=== PATIENT | female | born 2000 | race African-American/Black ===

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

== ENCOUNTER → 2020-02-21 | Outpatient (CLI) | payer OTHER, MEDICAID ==
--- NOTE | 2020-02-21 18:20 | RADIOLOGY REPORT (SQ) ---
EXAM DESCRIPTION: MRA ABDOMEN WITHOUT IMAGES COMPLETED DATE/TIME: 02/21/2020 5:55 pm REASON FOR STUDY: I15.0 RENOVASCULAR HYPERTENSION I15.0 RENOVASCULAR HYPERTENSION COMPARISON: None. TECHNIQUE: Coronal and Axial imaging with T1 and T2 weighting through the kidneys. 3-D MIPs perform ed at the work station. CONTRAST TYPE AND DOSE: None RENAL FUNCTION: None required LIMITATIONS: None. FINDINGS: KIDNEYS: Kidneys are of normal size. OTHER ABDOMINAL ORGANS: No significant finding. BONY STRUCTURES: No significant finding as visualized. VASCULAR STRUCTURES: No significant finding. RIGHT RENAL ARTERY: A single renal artery. Normal without evidence for stenosis. LEFT RENAL ARTERY: A single renal artery. Normal without evidence for stenosis. AORTA, SMA, CELIAC AXIS AND ILIAC ARTERIES: No significant finding or stenosis. OTHER: No other significant finding. IMPRESSION: NORMAL RIGHT AND LEFT RENAL ARTERIES. TECHNICAL DOCUMENTATION: JOB ID: [id number] [id number] 2010 [employer]- All Rights Reserved Reading location - IP/workstation name: [email or web address]
== END ==
LOC: RAD 15:44
PROVIDERS: ATTEND Internal Medicine
DX: I15.0 Renovascular hypertension (principal)
CPT/HCPCS: 36415; 84703; C8901

== ENCOUNTER 2020-04-01 04:28 | Emergency (ER) | payer OTHER, MEDICAID ==
[2020-04-01 06:26] LABS: APPEARANCE,URINE CLOUDY; BILIRUBIN,URINE NEGATIVE (NEGATIVE); COLOR,URINE YELLOW; GLUCOSE, URINE NEGATIVE (NEGATIVE); KETONES,URINE NEGATIVE (NEGATIVE); LEUKOCYTE ESTERASE,URINE SMALL (NEGATIVE); NITRITE,URINE NEGATIVE (NEGATIVE); PROTEIN,URINE 100 mg/dL (NEGATIVE); URINE SPECIFIC GRAVITY 1.024; UROBILINOGEN,URINE NEGATIVE mg/dL (<2.0)
--- NOTE | 2020-04-01 07:39 | RADIOLOGY REPORT (SQ) ---
EXAM: US Pelvis Transvaginal EXAM DATE/TIME: 04/01/2020 07:09 CLINICAL HISTORY: The patient is 19 years old and is Female; pelvic pain/bleeding TECHNIQUE: Real-time transvaginal pelvic ultrasound with image documentation. Transvaginal imaging was used for better evaluation of the endometrium and adnexa. COMPARISON: No relevant prior studies available. FINDINGS: UTERUS/CERVIX: The uterus measures 8.8 x 4.5 x 6.3 cm. No myometrial mass. Endometrial stripe measures 1.4 cm and is slightly heterogeneous. The cervix is unremarkable. RIGHT OVARY: The right ovary measures 3.8 x 2.2 x 2.4 cm. Follicles visualized in the right ovary. No ovarian mass. Blood flow is present in the right ovary. LEFT OVARY: The left ovary measures 3.9 x 1.7 x 1.7 cm. Normal follicles. No ovarian mass. Blood flow is demonstrated in the left ovary. FREE FLUID: No free fluid. BLADDER: Unremarkable as visualized. IMPRESSION: Mild prominence of the endometrial stripe, which is slightly heterogeneous. This may be secondary to blood products in the endometrial canal. Otherwise, no acute findings visualized in the pelvis.
[2020-04-01 08:00] LABS: ABSOLUTE EOSINOPHILS # (AUTO) 0.1 10^3/uL (0.0-0.6); ABSOLUTE LYMPHOCYTES (AUTO) 1.7 10^3/uL (0.5-4.7); ABSOLUTE MONOCYTES (AUTO) 0.4 10^3/uL (0.1-1.4); ABSOLUTE NEUT (AUTO) 2.7 10^3/uL (1.7-8.2); BASOPHILS % (AUTO) 0.5 % (0-2); HEMATOCRIT 36.2 % (36.0-47.0); LYMPHOCYTES % (AUTO) 35.4 % (13-45); MEAN CORPUSCULAR HGB CONC 33.1 g/dL (32.0-36.0); MEAN CORPUSCULAR VOLUME 88 fl (80-97); MONOCYTES % (AUTO) 7.7 % (3-13); PLATELET COUNT 198 10^3/uL (150-450); RED BLOOD COUNT 4.13 10^6/uL (3.72-5.28); RED CELL DISTRIBUTION WIDTH 13.8 % (11.5-14.0); SEGMENTED NEUTROPHILS % (AUTO) 55.4 % (42-78); TOTAL CELLS COUNTED % (AUTO) 100 %; WHITE BLOOD COUNT 4.8 10^3/uL (4.0-10.5)
--- NOTE | 2020-04-01 08:06 | ER Document Report ---
ED General - General Chief Complaint: Vaginal Bleeding Stated Complaint: VAGINAL BLEEDING Time Seen by Provider: 04/01/20 06:48 Primary Care Provider: ELIZABETH AUGUSTIN MD [Primary Care Provider] - Follow up in 3-5 days (have blood pressure rechecked) Mode of Arrival: Ambulatory Information source: Patient TRAVEL OUTSIDE OF THE [place] IN LAST 30 DAYS: No - HPI Notes: Patient complains of vaginal bleeding. She states been going on for 1 month persistently with large clots. She has not been lightheaded or dizzy. She states she did go to an emergency department last night and had blood work and a urine done. She states she was told she had no infections and that she was not . She states that she was told to get started on hormones but they did not write any prescriptions. She states she would like to have an ultrasound and be started on some hormone therapy. Patient denies any vomiting or diarrhea. She states she does not have any vaginal pain or discharge. No pain with urination. She states she has had some bilateral abdominal cramping. Is been mild. Is been intermittent for the last month. Nothing makes it better or worse. - Related Data Allergies/Adverse Reactions: No Known Allergies Allergy (Unverified 07/13/16 19:37) Past Medical History - General Information source: Patient - Social History Smoking Status: Never Smoker Frequency of alcohol use: None Drug Abuse: None Family History: Reviewed & Not Pertinent Renal/ Medical History: Denies: Hx Peritoneal Dialysis Review of Systems - Review of Systems Constitutional: denies: Chills, Fever Cardiovascular: denies: Chest pain, Palpitations Respiratory: denies: Cough, Short of breath -: Yes All other systems reviewed and negative Physical Exam - Vital signs Vitals: Temp Pulse Resp BP Pulse Ox 98.0 F 89 17 145/106 H 100 04/01/20 04:34 04/01/20 04:34 04/01/20 04:34 04/01/20 04:34 04/01/20 04:34 Interpretation: Hypertensive - General General appearance: Appears well, Alert - HEENT Head: Normocephalic, Atraumatic Eyes: Normal Pupils: PERRL - Respiratory Respiratory status: No respiratory distress Chest status: Nontender Breath sounds: Normal Chest palpation: Normal - Cardiovascular Rhythm: Regular Heart sounds: Normal auscultation Murmur: No - Abdominal Inspection: Normal Distension: No distension Bowel sounds: Normal Tenderness: Nontender Organomegaly: No organomegaly - Back Back: Normal, Nontender - Extremities General upper extremity: Normal inspection, Nontender, Normal color, Normal ROM, Normal temperature General lower extremity: Normal inspection, Nontender, Normal color, Normal ROM, Normal temperature, Normal weight bearing. No: Lester's sign - Neurological Neuro grossly intact: Yes Cognition: Normal Orientation: AAOx4 [place] Coma Scale Eye Opening: Spontaneous [place] Coma Scale Verbal: Oriented Raffae[place] Coma Scale Motor: Obeys Commands Raffae[place] Coma Scale Total: 15 Speech: Normal Motor strength normal: LUE, RUE, LLE, RLE Sensory: Normal - Psychological Associated symptoms: Normal affect, Normal mood - Skin Skin Temperature: Warm Skin Moisture: Dry Skin Color: Normal Course - Re-evaluation Re-evalutation: 04/01/20 08:14 Patient presents with dysfunctional uterine bleeding. Vital signs are stable other than she is significantly hypertensive for which I will treat her with an antihypertensive medication. Patient has a stable CBC. She is not tachycardic. Patient also has some white cells in her urine but is obviously a contaminated sample and she has no UTI symptoms therefore I do not feel that antibiotics are warranted at this time. Ultrasound shows no significant abnormal pathology. She will be started on hormone therapy and referred to [facility] and family physician. - Vital Signs Vital signs: Temp Pulse Resp BP Pulse Ox 98.0 F 89 17 145/106 H 100 04/01/20 04:34 04/01/20 04:34 04/01/20 04:34 04/01/20 04:34 04/01/20 04:34 - Laboratory Result Diagrams: 04/01/20 06:22 Laboratory results interpreted by me: 04/01/20 05:46 Urine Protein 100 H Urine Blood LARGE H Ur Leukocyte Esterase SMALL H - Diagnostic Test Radiology reviewed: Image reviewed, Reports reviewed Discharge - Discharge Clinical Impression: Dysfunctional uterine bleeding Condition: Stable Disposition: HOME, SELF-CARE Instructions: Dysfunctional Uterine Bleeding ([facility]) Additional Instructions: Please call a solutions operator as soon as possible to arrange follow-up. Your blood pressure is elevated today. Please take the medication for your blood pressure as prescribed. Please follow-up with a primary care doctor within 1 w [employer] to have a reevaluation of your blood pressure. Prescriptions: Amlodipine Besylate [Norvasc 2.5 mg Tablet] 2.5 mg PO DAILY #30 tablet Medroxyprogesterone Acet [Provera 10 Mg Tablet] 10 mg PO DAILY 10 Days #10 tablet Forms: Elevated Blood Pressure, Return to School Referrals: ELIZABETH AUGUSTIN MD [Primary Care Provider] - Follow up in 3-5 days (have blood pressure rechecked) CEDRIC KAUFFMAN MD [ACTIVE STAFF] - Follow up in 1 week
[2020-04-01 08:27] VITALS: BP 136/92
== END 2020-04-01 08:26 | disposition home or self-care (01) ==
LOC: ER 04:28
DX: N93.9 Abnormal uterine and vaginal bleeding, unspecified (principal); N93.8 Other specified abnormal uterine and vaginal bleeding; R10.9 Unspecified abdominal pain; I10 Essential (primary) hypertension
CPT/HCPCS: 36415; 76830; 81001; 84703; 85025; 99284